=== PATIENT | male | born 1945 | race Two or more races ===

== ENCOUNTER 2016-11-07 10:15 | Emergency (ER) | payer MEDICARE, OTHER | END 2016-11-07 12:20 | disposition home or self-care (01) | LOC: ER 10:15 | PROC: 0H9NXZZ Drainage of Left Foot Skin, External Approach (ICD-10-PCS; principal; 2016-11-07) | DX: L02.612 Cutaneous abscess of left foot (principal) | CPT/HCPCS: 73630-LT; 99283; A9270-GY ==